=== PATIENT | male | born 1960 | race Caucasian/White ===

== ENCOUNTER 2020-09-21 20:23 | Emergency (ER) | payer BC ==
[2020-09-21] MEDS ORDERED: Azithromycin 250 MG TAB ONE (20:59)
[2020-09-21] MEDS ORDERED: Ibuprofen 200 MG TAB ONE (21:01)
--- NOTE | 2020-09-22 07:39 | RAD ---
CHEST 2 VIEWS: DATE: 09/21/2020. FINDINGS: Comparison is made with a 07/07/2014 study. While there is no major lobar infiltrate, there is a little bit of prominence of the markings in the right middle lobe. A minimal infiltrate here is possible. The upper lobes are clear. There are no effusions. The heart size is normal. There is no vascular congestion or edema. The mediastinum was unremarkable. IMPRESSION: Increase in right middle lobe markings. An infection in this vicinity is possible. POS: HOME
[2020-09-22 22:45] LABS: SARS-CoV-2 MS2 Positive; SARS-CoV-2 N Gene Negative; SARS-CoV-2 S Gene Negative; SARS-CoV-2 by NAA Not Detected (NotDetected); SARS-CoV-2 orf1ab Negative
== END 2020-09-21 21:10 | disposition home or self-care (01) ==
LOC: BURERS 20:23
DX: J18.9 Pneumonia, unspecified organism (principal); Z20.828 Contact with and (suspected) exposure to other viral communicable diseases; I10 Essential (primary) hypertension; Z79.899 Other long term (current) drug therapy
CPT/HCPCS: 71046; 87635; U0003

== ENCOUNTER 2025-10-26 09:14 | Emergency (ER) | payer BC, MEDICARE, SELFPAY | END 2025-10-26 10:45 | disposition home or self-care (01) | LOC: BURERS 09:14 | DX: K56.41 Fecal impaction (principal); Z86.73 Personal history of transient ischemic attack (TIA), and cerebral infarction without residual deficits; I10 Essential (primary) hypertension; E78.00 Pure hypercholesterolemia, unspecified; Z79.82 Long term (current) use of aspirin; Z79.899 Other long term (current) drug therapy | CPT/HCPCS: 96374; 96375; J2250; J3010 ==